=== PATIENT | female | born 1940 | race Caucasian/White ===

== ENCOUNTER 2017-08-07 13:20 | Inpatient (IN) ==
[2017-08-07] MEDS ORDERED: *HR* Enoxaparin 30 MG/0.3 ML SYRINGE SQ SCH (18:00)
[2017-08-07] MEDS: *HR* OxyCODONE/APAP 10/325 TABLET PO PRN (20:20)
[2017-08-07] MEDS: *HR* LORazepam 1 MG TABLET PO PRN (20:20)
[2017-08-08 06:36] LABS: Basophils % 0.5 %; Eosinophils # 0.4 K/mcL (0.0-0.6); Eosinophils % 4.9 %; Hematocrit 32.2 % (35.3-44.9); Hemoglobin 10.6 g/dL (11.5-15.4); Immature Granulocytes % 0.4 % (0-4); Lymphocytes % 26.2 %; Mean Corpuscular HGB Conc 32.9 g/dL (31.6-35.5); Mean Corpuscular Hemoglobin 29.5 pg (28.0-33.3); Mean Corpuscular Volume 89.7 fL (83.0-100.0); Mean Platelet Volume 10.7 fL (9.4-12.4); Monocytes # 0.8 K/mcL (0.0-1.3); Monocytes % 10.5 %; Neutrophils # 4.5 K/mcL (1.6-8.9); Platelet Count 274 K/mcL (140-400); Red Blood Count 3.59 M/mcL (3.82-4.97); Red Cell Distribution Width 13.5 % (11.5-14.5); Segmented Neutrophils % 57.5 %
[2017-08-08 06:41] LABS: Prothrombin Time 11.2 Seconds (9.4-12.1)
[2017-08-08 06:44] LABS: Activated Partial Thrombo Time 30.3 Seconds (26.0-36.0)
[2017-08-08 06:58] LABS: BUN/Creatinine Ratio 19 (6-26); Blood Urea Nitrogen 14 mg/dL (8-23); Calcium 9.2 mg/dL (8.6-10.3); Carbon Dioxide 30 mEq/L (23-29); Chloride 104 mEq/L (98-107); Glucose 98 mg/dL (70-105); Osmolality,Calculated 290 (280-300); Potassium 3.9 mEq/L (3.5-5.1); Sodium 140 mEq/L (136-145); eGFR For African Americans > 60 (> 60); eGFR For Non-African Americans > 60 (> 60)
[2017-08-08] MEDS: *HR* Enoxaparin 40 MG/0.4 ML SYRINGE SQ SCH (08:26)
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
[2017-08-08] MEDS: MOM Conc 10 ML UD.LIQ PO SCH (18:13)
[2017-08-08] MEDS: *HR* LORazepam 1 MG TABLET PO PRN (20:32)
[2017-08-08] MEDS: *HR* OxyCODONE/APAP 10/325 TABLET PO PRN (20:32)
[2017-08-09 06:04] LABS: Basophils % 0.6 %; Eosinophils # 0.4 K/mcL (0.0-0.6); Eosinophils % 5.7 %; Hematocrit 30.7 % (35.3-44.9); Immature Granulocytes % 0.3 % (0-4); Lymphocytes # 1.8 K/mcL (0.6-4.6); Mean Corpuscular HGB Conc 32.6 g/dL (31.6-35.5); Mean Platelet Volume 11.1 fL (9.4-12.4); Monocytes # 0.8 K/mcL (0.0-1.3); Monocytes % 10.9 %; Neutrophils # 3.9 K/mcL (1.6-8.9); Platelet Count 281 K/mcL (140-400); Red Blood Count 3.45 M/mcL (3.82-4.97); Red Cell Distribution Width 13.6 % (11.5-14.5); Segmented Neutrophils % 56.5 %
[2017-08-09 06:14] LABS: Prothrombin Time 11.1 Seconds (9.4-12.1)
[2017-08-09 06:17] LABS: Activated Partial Thrombo Time 32.8 Seconds (26.0-36.0)
[2017-08-09 06:25] LABS: BUN/Creatinine Ratio 25 (6-26); Blood Urea Nitrogen 16 mg/dL (8-23); Calcium 9.1 mg/dL (8.6-10.3); Carbon Dioxide 28 mEq/L (23-29); Chloride 105 mEq/L (98-107); Glucose 95 mg/dL (70-105); Osmolality,Calculated 285 (280-300); Potassium 4.2 mEq/L (3.5-5.1); Sodium 137 mEq/L (136-145); eGFR For African Americans > 60 (> 60); eGFR For Non-African Americans > 60 (> 60)
[2017-08-09] MEDS: *HR* Enoxaparin 40 MG/0.4 ML SYRINGE SQ SCH (08:44)
--- NOTE | 2017-08-09 17:59 | Internal Med Progress Note ---
Date of Encounter: 08/09/17 Time of Encounter: 17:50 - Assessment and plan (1) Patellar fracture Current Visit: No Status: Acute Assessment and plan: August 09. Now status post ORIF. Continue therapy intervention. Qualifiers: Encounter type: initial encounter Fracture type: closed Fracture morphology: comminuted Fracture alignment: displaced Laterality: left Qualified Code(s): S82.042A - Displaced comminuted fracture of left patella, initial encounter for closed fracture (2) Anemia Current Visit: Yes Status: Acute Assessment and plan: August 09. We will monitor hemoglobin. Qualifiers: Anemia type: unspecified type Qualified Code(s): D64.9 - Anemia, unspecified (3) DJD (degenerative joint disease) Current Visit: Yes Status: Acute Assessment and plan: August 09. Continue Percocet when necessary Qualifiers: Osteoarthritis location: unspecified site Osteoarthritis type: primary Qualified Code(s): M19.91 - Primary osteoarthritis, unspecified site (4) Near syncope Current Visit: Yes Status: Acute Assessment and plan: August 09. I told her the etiology was not obvious but it sounded more neurogenic than vascular in origin. She agreed to observe for now without further workup or treatment. - Subjective Interval history: August 09. She has no new complaints except experiencing an episode lasting approximately 2 seconds she describes as a "brain flash" that seemed to be in her right posterior neck and occipital area. She felt as if she were detach from reality for 1-2 seconds with near-syncope sensation and immediate resolution. She denied sensation of tachycardia or bradycardia or other neurologic phenomenon. She reports 2 similar previous episodes approximately 2 and 4 weeks ago. - Constitutional Vitals: Temp Pulse Resp BP Pulse Ox 98.4 F 75 16 131/67 95 08/09/17 07:24 08/09/17 07:24 08/09/17 07:24 08/09/17 07:24 08/09/17 07:24 Exam: She is resting comfortably in bed and appears in no acute distress. She is appropriate in conversation. Her affect is bright and cheerful. She had no pain on movement of her neck. I reviewed her medications and lab results. Internal Medicine: Result - Labs CBC & Chem 7: 08/09/17 05:28 08/09/17 05:28 Labs: Short CBC 08/09/17 Range/Units 05:28 WBC 6.9 (4.3-11.1) K/mcL Hgb 10.0 L (11.5-15.4) g/dL Hct 30.7 L (35.3-44.9) % Plt Count 281 (140-400) K/mcL Neutrophils # 3.9 (1.6-8.9) K/mcL BMP 08/09/17 05:28 Sodium 137 Potassium 4.2 Chloride 105 Carbon Dioxide 28 BUN 16 Creatinine 0.64 Glucose 95 Calcium 9.1 - ABG Interpretation ABG results: PT/INR, D-dimer PT 11.1 Seconds (9.4-12.1) 08/09/17 05:28 Consult Discharge Plan - Plan Referrals: Makayla Curtis MD [Primary Care Provider] - 1 week
[2017-08-09] MEDS: *HR* LORazepam 1 MG TABLET PO PRN (20:40)
[2017-08-09] MEDS: *HR* OxyCODONE/APAP 10/325 TABLET PO PRN (20:40)
[2017-08-10 04:58] LABS: Basophils # 0.1 K/mcL (0.0-0.2); Basophils % 0.9 %; Eosinophils # 0.4 K/mcL (0.0-0.6); Eosinophils % 6.3 %; Hematocrit 30.5 % (35.3-44.9); Hemoglobin 9.9 g/dL (11.5-15.4); Immature Granulocytes % 0.3 % (0-4); Lymphocytes # 1.9 K/mcL (0.6-4.6); Mean Corpuscular HGB Conc 32.5 g/dL (31.6-35.5); Mean Corpuscular Hemoglobin 28.8 pg (28.0-33.3); Mean Corpuscular Volume 88.7 fL (83.0-100.0); Mean Platelet Volume 10.9 fL (9.4-12.4); Monocytes # 0.7 K/mcL (0.0-1.3); Monocytes % 9.6 %; Neutrophils # 3.7 K/mcL (1.6-8.9); Platelet Count 292 K/mcL (140-400); Red Blood Count 3.44 M/mcL (3.82-4.97); Red Cell Distribution Width 13.5 % (11.5-14.5); Segmented Neutrophils % 54.9 %
[2017-08-10 05:10] LABS: Prothrombin Time 10.8 Seconds (9.4-12.1)
[2017-08-10 05:12] LABS: Activated Partial Thrombo Time 33.2 Seconds (26.0-36.0)
[2017-08-10 05:20] LABS: BUN/Creatinine Ratio 31 (6-26); Blood Urea Nitrogen 22 mg/dL (8-23); Calcium 9.2 mg/dL (8.6-10.3); Carbon Dioxide 28 mEq/L (23-29); Chloride 105 mEq/L (98-107); Glucose 97 mg/dL (70-105); Osmolality,Calculated 291 (280-300); Potassium 4.1 mEq/L (3.5-5.1); Sodium 139 mEq/L (136-145); eGFR For African Americans > 60 (> 60); eGFR For Non-African Americans > 60 (> 60)
[2017-08-10] MEDS: *HR* Enoxaparin 40 MG/0.4 ML SYRINGE SQ SCH (09:36)
[2017-08-10] MEDS: MOM Conc 10 ML UD.LIQ PO SCH (17:13)
[2017-08-10] MEDS: *HR* OxyCODONE/APAP 10/325 TABLET PO PRN (21:03)
[2017-08-10] MEDS: *HR* LORazepam 1 MG TABLET PO PRN (21:09)
[2017-08-11 06:25] LABS: Basophils # 0.1 K/mcL (0.0-0.2); Basophils % 0.6 %; Eosinophils # 0.4 K/mcL (0.0-0.6); Eosinophils % 4.3 %; Hematocrit 34.1 % (35.3-44.9); Hemoglobin 11.1 g/dL (11.5-15.4); Immature Granulocytes % 0.3 % (0-4); Lymphocytes # 1.9 K/mcL (0.6-4.6); Lymphocytes % 21.4 %; Mean Corpuscular HGB Conc 32.6 g/dL (31.6-35.5); Mean Corpuscular Hemoglobin 29.1 pg (28.0-33.3); Mean Corpuscular Volume 89.5 fL (83.0-100.0); Mean Platelet Volume 10.6 fL (9.4-12.4); Monocytes # 0.7 K/mcL (0.0-1.3); Monocytes % 8.5 %; Neutrophils # 5.6 K/mcL (1.6-8.9); Platelet Count 326 K/mcL (140-400); Red Blood Count 3.81 M/mcL (3.82-4.97); Red Cell Distribution Width 13.7 % (11.5-14.5); Segmented Neutrophils % 64.9 %
[2017-08-11 06:33] LABS: Prothrombin Time 11.2 Seconds (9.4-12.1)
[2017-08-11 06:36] LABS: Activated Partial Thrombo Time 33.5 Seconds (26.0-36.0)
[2017-08-11 06:44] LABS: BUN/Creatinine Ratio 27 (6-26); Blood Urea Nitrogen 19 mg/dL (8-23); Calcium 9.3 mg/dL (8.6-10.3); Carbon Dioxide 28 mEq/L (23-29); Chloride 102 mEq/L (98-107); Glucose 94 mg/dL (70-105); Osmolality,Calculated 284 (280-300); Sodium 136 mEq/L (136-145); eGFR For African Americans > 60 (> 60); eGFR For Non-African Americans > 60 (> 60)
[2017-08-11] MEDS: *HR* Enoxaparin 40 MG/0.4 ML SYRINGE SQ SCH (09:25)
--- NOTE | 2017-08-11 10:30 | Internal Med Progress Note ---
Date of Encounter: 08/11/17 Time of Encounter: 10:20 - Assessment and plan (1) Patellar fracture Current Visit: No Status: Acute Assessment and plan: August 09. Now status post ORIF. Continue therapy intervention. Qualifiers: Encounter type: initial encounter Fracture type: closed Fracture morphology: comminuted Fracture alignment: displaced Laterality: left Qualified Code(s): S82.042A - Displaced comminuted fracture of left patella, initial encounter for closed fracture (2) Anemia Current Visit: Yes Status: Acute Assessment and plan: August 09. We will monitor hemoglobin. Qualifiers: Anemia type: unspecified type Qualified Code(s): D64.9 - Anemia, unspecified (3) DJD (degenerative joint disease) Current Visit: Yes Status: Acute Assessment and plan: August 09. Continue Percocet when necessary Qualifiers: Osteoarthritis location: unspecified site Osteoarthritis type: primary Qualified Code(s): M19.91 - Primary osteoarthritis, unspecified site (4) Near syncope Current Visit: Yes Status: Acute Assessment and plan: August 09. I told her the etiology was not obvious but it sounded more neurogenic than vascular in origin. She agreed to observe for now without further workup or treatment. (5) Constipation Current Visit: Yes Status: Acute Assessment and plan: August 11. Will give higher dose MOM Qualifiers: Constipation type: unspecified constipation type Qualified Code(s): K59.00 - Constipation, unspecified - Subjective Interval history: August 09. She has no new complaints except experiencing an episode lasting approximately 2 seconds she describes as a "brain flash" that seemed to be in her right posterior neck and occipital area. She felt as if she were detach from reality for 1-2 seconds with near-syncope sensation and immediate resolution. She denied sensation of tachycardia or bradycardia or other neurologic phenomenon. She reports 2 similar previous episodes approximately 2 and 4 weeks ago. August 11. She has no new complaints. She denies any more "brain flash" occurrences. She reports she has not had a significant BM since admission. - Constitutional Vitals: Temp Pulse Resp BP Pulse Ox 98 F 68 16 135/53 98 08/11/17 06:51 08/11/17 06:51 08/11/17 06:51 08/11/17 06:51 08/11/17 06:51 Exam: She is resting comfortably in bed and appears in no acute distress. Her affect is bright and cheerful. I reviewed her medications and lab results. Internal Medicine: Result - Labs CBC & Chem 7: 08/11/17 06:10 08/11/17 06:10 Labs: Short CBC 08/11/17 Range/Units 06:10 WBC 8.7 (4.3-11.1) K/mcL Hgb 11.1 L (11.5-15.4) g/dL Hct 34.1 L (35.3-44.9) % Plt Count 326 (140-400) K/mcL Neutrophils # 5.6 (1.6-8.9) K/mcL BMP 08/11/17 06:10 Sodium 136 Potassium 4.0 Chloride 102 Carbon Dioxide 28 BUN 19 Creatinine 0.71 Glucose 94 Calcium 9.3 - ABG Interpretation ABG results: PT/INR, D-dimer PT 11.2 Seconds (9.4-12.1) 08/11/17 06:10 Consult Discharge Plan - Plan Referrals: Makayla Curtis MD [Primary Care Provider] - 1 week
[2017-08-11] MEDS: MOM Conc 10 ML UD.LIQ PO SCH (16:33)
[2017-08-11] MEDS: *HR* LORazepam 1 MG TABLET PO PRN (20:46)
[2017-08-11] MEDS: *HR* OxyCODONE/APAP 10/325 TABLET PO PRN (20:47)
[2017-08-12 06:14] LABS: Basophils # 0.1 K/mcL (0.0-0.2); Basophils % 0.8 %; Eosinophils # 0.4 K/mcL (0.0-0.6); Eosinophils % 5.5 %; Hematocrit 29.4 % (35.3-44.9); Hemoglobin 9.6 g/dL (11.5-15.4); Immature Granulocytes % 0.4 % (0-4); Lymphocytes # 1.8 K/mcL (0.6-4.6); Lymphocytes % 23.9 %; Mean Corpuscular HGB Conc 32.7 g/dL (31.6-35.5); Mean Corpuscular Hemoglobin 28.8 pg (28.0-33.3); Mean Corpuscular Volume 88.3 fL (83.0-100.0); Mean Platelet Volume 10.8 fL (9.4-12.4); Monocytes # 0.8 K/mcL (0.0-1.3); Monocytes % 9.7 %; Neutrophils # 4.6 K/mcL (1.6-8.9); Platelet Count 303 K/mcL (140-400); Red Blood Count 3.33 M/mcL (3.82-4.97); Red Cell Distribution Width 13.5 % (11.5-14.5); Segmented Neutrophils % 59.7 %
[2017-08-12 06:32] LABS: Activated Partial Thrombo Time 32.5 Seconds (26.0-36.0)
[2017-08-12 06:34] LABS: BUN/Creatinine Ratio 38 (6-26); Blood Urea Nitrogen 26 mg/dL (8-23); Carbon Dioxide 27 mEq/L (23-29); Chloride 105 mEq/L (98-107); Glucose 92 mg/dL (70-105); Osmolality,Calculated 288 (280-300); Potassium 3.8 mEq/L (3.5-5.1); Sodium 137 mEq/L (136-145); eGFR For African Americans > 60 (> 60); eGFR For Non-African Americans > 60 (> 60)
[2017-08-12] MEDS: *HR* Enoxaparin 40 MG/0.4 ML SYRINGE SQ SCH (08:32)
[2017-08-12] MEDS: *HR* LORazepam 1 MG TABLET PO PRN (21:05)
[2017-08-12] MEDS: *HR* OxyCODONE/APAP 10/325 TABLET PO PRN (21:05)
[2017-08-13] MEDS: MOM Conc 10 ML UD.LIQ PO SCH (08:59)
[2017-08-13] MEDS: *HR* Enoxaparin 40 MG/0.4 ML SYRINGE SQ SCH (09:00)
[2017-08-13] MEDS: *HR* OxyCODONE/APAP 10/325 TABLET PO PRN (20:35)
[2017-08-13] MEDS: *HR* LORazepam 1 MG TABLET PO PRN (20:35)
[2017-08-14] MEDS: *HR* Enoxaparin 40 MG/0.4 ML SYRINGE SQ SCH (11:09)
[2017-08-14] MEDS: *HR* OxyCODONE/APAP 10/325 TABLET PO PRN ×2 (12:13→21:00)
--- NOTE | 2017-08-14 18:43 | Internal Med Progress Note ---
Date of Encounter: 08/14/17 Time of Encounter: 18:35 - Assessment and plan (1) Patellar fracture Current Visit: No Status: Acute Assessment and plan: August 09. Now status post ORIF. Continue therapy intervention. Qualifiers: Encounter type: initial encounter Fracture type: closed Fracture morphology: comminuted Fracture alignment: displaced Laterality: left Qualified Code(s): S82.042A - Displaced comminuted fracture of left patella, initial encounter for closed fracture (2) Anemia Current Visit: Yes Status: Acute Assessment and plan: August 09. We will monitor hemoglobin. August 14. Recheck labs in a.m. Qualifiers: Anemia type: unspecified type Qualified Code(s): D64.9 - Anemia, unspecified (3) DJD (degenerative joint disease) Current Visit: Yes Status: Acute Assessment and plan: August 09. Continue Percocet when necessary Qualifiers: Osteoarthritis location: unspecified site Osteoarthritis type: primary Qualified Code(s): M19.91 - Primary osteoarthritis, unspecified site (4) Near syncope Current Visit: Yes Status: Acute Assessment and plan: August 09. I told her the etiology was not obvious but it sounded more neurogenic than vascular in origin. She agreed to observe for now without further workup or treatment. (5) Constipation Current Visit: Yes Status: Acute Assessment and plan: August 11. Will give higher dose MOM Qualifiers: Constipation type: unspecified constipation type Qualified Code(s): K59.00 - Constipation, unspecified - Subjective Interval history: August 09. She has no new complaints except experiencing an episode lasting approximately 2 seconds she describes as a "brain flash" that seemed to be in her right posterior neck and occipital area. She felt as if she were detach from reality for 1-2 seconds with near-syncope sensation and immediate resolution. She denied sensation of tachycardia or bradycardia or other neurologic phenomenon. She reports 2 similar previous episodes approximately 2 and 4 weeks ago. August 11. She has no new complaints. She denies any more "brain flash" occurrences. She reports she has not had a significant BM since admission. August 14. She had increased discomfort in the left knee this morning. Nursing reported there were some greenish drainage. She saw the orthopedist office today and the dressing was changed. Antibiotics were started. - Constitutional Vitals: Temp Pulse Resp BP Pulse Ox 98.1 F 60 161 141/56 94 08/14/17 06:51 08/14/17 06:51 08/14/17 06:51 08/14/17 06:51 08/14/17 06:51 Exam: There is increased warmth in the left knee compared to the right. There is no pitting edema. Her affect is bright and cheerful and she does not appear to be in significant pain. I reviewed her medications and lab results. Internal Medicine: Result - Labs CBC & Chem 7: 08/12/17 05:45 08/12/17 05:45 - ABG Interpretation ABG results: PT/INR, D-dimer PT 11.0 Seconds (9.4-12.1) 08/12/17 05:45 Consult Discharge Plan - Plan Referrals: Makayla Curtis MD [Primary Care Provider] - 1 week
[2017-08-14] MEDS: Doxycycline 100 MG CAPSULE PO SCH (20:59)
[2017-08-14] MEDS: *HR* LORazepam 1 MG TABLET PO PRN (20:59)
[2017-08-14] MEDS: Sulfamethoxazole/Trimeth DS 1 EACH TABLET PO SCH (21:00)
[2017-08-15] MEDS: *HR* Enoxaparin 40 MG/0.4 ML SYRINGE SQ SCH (07:57)
[2017-08-15] MEDS: Sulfamethoxazole/Trimeth DS 1 EACH TABLET PO SCH ×2 (07:57→21:33)
[2017-08-15] MEDS: Doxycycline 100 MG CAPSULE PO SCH ×2 (07:57→21:34)
[2017-08-15] MEDS: MOM Conc 10 ML UD.LIQ PO SCH ×2 (07:58→08:28)
[2017-08-15] MEDS: *HR* LORazepam 1 MG TABLET PO PRN (21:34)
[2017-08-16] MEDS: *HR* Enoxaparin 40 MG/0.4 ML SYRINGE SQ SCH (09:20)
[2017-08-16] MEDS: Sulfamethoxazole/Trimeth DS 1 EACH TABLET PO SCH ×2 (09:20→21:08)
[2017-08-16] MEDS: Doxycycline 100 MG CAPSULE PO SCH ×2 (09:20→21:08)
--- NOTE | 2017-08-16 16:13 | Internal Med Progress Note ---
Date of Encounter: 08/16/17 Time of Encounter: 16:00 - Assessment and plan (1) Patellar fracture Current Visit: No Status: Acute Assessment and plan: August 09. Now status post ORIF. Continue therapy intervention. Qualifiers: Encounter type: initial encounter Fracture type: closed Fracture morphology: comminuted Fracture alignment: displaced Laterality: left Qualified Code(s): S82.042A - Displaced comminuted fracture of left patella, initial encounter for closed fracture (2) Anemia Current Visit: Yes Status: Acute Assessment and plan: August 09. We will monitor hemoglobin. August 14. Recheck labs in a.m. August 16. Recheck labs in a.m. Qualifiers: Anemia type: unspecified type Qualified Code(s): D64.9 - Anemia, unspecified (3) DJD (degenerative joint disease) Current Visit: Yes Status: Acute Assessment and plan: August 09. Continue Percocet when necessary Qualifiers: Osteoarthritis location: unspecified site Osteoarthritis type: primary Qualified Code(s): M19.91 - Primary osteoarthritis, unspecified site (4) Near syncope Current Visit: Yes Status: Acute Assessment and plan: August 09. I told her the etiology was not obvious but it sounded more neurogenic than vascular in origin. She agreed to observe for now without further workup or treatment. August 16. She reports no further episodes. We will observe (5) Constipation Current Visit: Yes Status: Acute Assessment and plan: August 11. Will give higher dose MOM Qualifiers: Constipation type: unspecified constipation type Qualified Code(s): K59.00 - Constipation, unspecified - Subjective Interval history: August 09. She has no new complaints except experiencing an episode lasting approximately 2 seconds she describes as a "brain flash" that seemed to be in her right posterior neck and occipital area. She felt as if she were detach from reality for 1-2 seconds with near-syncope sensation and immediate resolution. She denied sensation of tachycardia or bradycardia or other neurologic phenomenon. She reports 2 similar previous episodes approximately 2 and 4 weeks ago. August 11. She has no new complaints. She denies any more "brain flash" occurrences. She reports she has not had a significant BM since admission. August 14. She had increased discomfort in the left knee this morning. Nursing reported there were some greenish drainage. She saw the orthopedist office today and the dressing was changed. Antibiotics were started. August 16. She has no new complaints. - Constitutional Vitals: Temp Pulse Resp BP Pulse Ox 97.6 F 68 16 143/65 98 08/16/17 08:00 08/16/17 08:00 08/16/17 08:00 08/16/17 08:00 08/16/17 08:00 Exam: She is resting comfortably in bed and appears in no acute distress. Her left knee shows slight decrease in erythema and warmth than previous exam. I reviewed her medications and lab results. Internal Medicine: Result - Labs CBC & Chem 7: 08/12/17 05:45 08/12/17 05:45 - ABG Interpretation ABG results: PT/INR, D-dimer PT 11.0 Seconds (9.4-12.1) 08/12/17 05:45 Consult Discharge Plan - Plan Referrals: Makayla Curtis MD [Primary Care Provider] - 1 week
[2017-08-16] MEDS: *HR* LORazepam 1 MG TABLET PO PRN (21:08)
[2017-08-17 05:22] LABS: Basophils # 0.1 K/mcL (0.0-0.2); Basophils % 0.9 %; Eosinophils # 0.3 K/mcL (0.0-0.6); Eosinophils % 3.7 %; Hematocrit 31.7 % (35.3-44.9); Hemoglobin 10.5 g/dL (11.5-15.4); Immature Granulocytes % 0.4 % (0-4); Lymphocytes # 1.8 K/mcL (0.6-4.6); Lymphocytes % 21.6 %; Mean Corpuscular HGB Conc 33.1 g/dL (31.6-35.5); Mean Corpuscular Volume 87.6 fL (83.0-100.0); Mean Platelet Volume 10.5 fL (9.4-12.4); Monocytes # 0.8 K/mcL (0.0-1.3); Monocytes % 9.2 %; Neutrophils # 5.2 K/mcL (1.6-8.9); Platelet Count 372 K/mcL (140-400); Red Blood Count 3.62 M/mcL (3.82-4.97); Segmented Neutrophils % 64.2 %
[2017-08-17 05:42] LABS: BUN/Creatinine Ratio 21 (6-26); Blood Urea Nitrogen 21 mg/dL (8-23); Calcium 9.6 mg/dL (8.6-10.3); Carbon Dioxide 27 mEq/L (23-29); Chloride 105 mEq/L (98-107); Glucose 90 mg/dL (70-105); Osmolality,Calculated 287 (280-300); Potassium 4.7 mEq/L (3.5-5.1); Sodium 137 mEq/L (136-145); eGFR For African Americans > 60 (> 60); eGFR For Non-African Americans 52 (> 60)
[2017-08-17] MEDS: Doxycycline 100 MG CAPSULE PO SCH ×2 (09:07→20:47)
[2017-08-17] MEDS: MOM Conc 10 ML UD.LIQ PO SCH (09:08)
[2017-08-17] MEDS: *HR* Enoxaparin 40 MG/0.4 ML SYRINGE SQ SCH (09:08)
[2017-08-17] MEDS: Sulfamethoxazole/Trimeth DS 1 EACH TABLET PO SCH ×2 (09:08→20:47)
[2017-08-17] MEDS ORDERED: Ondansetron ODT 4 MG TAB.RAPDIS SL PRN (19:44)
[2017-08-17] MEDS: *HR* LORazepam 1 MG TABLET PO PRN (21:57)
[2017-08-18] MEDS: *HR* Enoxaparin 40 MG/0.4 ML SYRINGE SQ SCH (08:30)
[2017-08-18] MEDS: Sulfamethoxazole/Trimeth DS 1 EACH TABLET PO SCH ×2 (08:30→21:13)
[2017-08-18] MEDS: Doxycycline 100 MG CAPSULE PO SCH ×2 (08:30→21:13)
[2017-08-18] MEDS ORDERED: Acetaminophen 325 MG TABLET PO PRN (21:05)
[2017-08-18] MEDS: *HR* LORazepam 1 MG TABLET PO PRN (21:16)
[2017-08-19 06:44] VITALS: BP 133/54
--- NOTE | 2017-08-19 09:15 | Discharge Summary ---
Date of Encounter: 08/19/17 Time of Encounter: 09:05 - Discharge Diagnosis (1) Patellar fracture Priority: Primary Status: Acute Qualifiers: Encounter type: initial encounter Fracture type: closed Fracture morphology: comminuted Fracture alignment: displaced Laterality: left Qualified Code(s): S82.042A - Displaced comminuted fracture of left patella, initial encounter for closed fracture (2) Anemia Priority: Secondary Status: Acute Qualifiers: Anemia type: unspecified type Qualified Code(s): D64.9 - Anemia, unspecified (3) DJD (degenerative joint disease) Priority: Secondary Status: Acute Qualifiers: Osteoarthritis location: unspecified site Osteoarthritis type: primary Qualified Code(s): M19.91 - Primary osteoarthritis, unspecified site (4) Near syncope Priority: Secondary Status: Acute (5) Constipation Priority: Secondary Status: Acute Qualifiers: Constipation type: unspecified constipation type Qualified Code(s): K59.00 - Constipation, unspecified Hospital course: Ms. Lan is a 77 year old female who was hospitalized at [facility] August 04 after a fall on pavement resulting in left patellar fracture. She had ORIF at [facility] and her postop course was unremarkable. She was transferred to [facility] swing bed for ongoing therapy needs. Initial orders were written by the discharging physician at [facility]. I saw her on August 08 and performed the swing bed history and physical. She had physical therapy and occupational therapy evaluation with ongoing intervention. She made satisfactory progress in therapy. On August 14 she had increased discomfort in the left knee and was evaluated at the orthopedist's office. She was started on doxycycline and Septra DS. Follow-up labs on August 17 showed creatinine having risen to 1.02 with estimated GFR 52. I suspect this could be due to Septra DS. Her PCP and/or orthopedist can monitor this. She went on day pass August 18 and functioned satisfactorily. She felt stable for discharge home on August 19. She will follow with orthopedist as directed. Hemoglobin on August 17 was stable at 10.5. Her PCP can monitor this. - Time Spent with Patient Total time spent providing and/or coordinating discharge services: - Discharge Medications Home Medications: Nortriptyline [Pamelor] 10 mg PO HS 08/04/17 [History] Enoxaparin [Lovenox] 30 mg SQ Q12HR #20 syringe 08/07/17 [Rx] LORazepam [Ativan] 0.5 mg PO HS PRN 5 Days #5 tablet 08/07/17 [Rx] OxyCODONE/APAP 10/325 [Percocet 10/325 MG] 1 each PO Q6HR PRN 5 Days #20 tablet 08/07/17 [Rx] Allergies/Adverse Reactions: 3 Allergy/AdvReac Type Severity Reaction Status Date / Time trazodone AdvReac Dizziness Verified 08/04/17 14:56 Date of admission: 08/07/17 13:25 Primary care physician: Makayla Curtis, Consults: 08/07/17 13:29 Consult to Occupational Therapy [CONS] Routine Comment: Evaluate, Develop and Implement Plan of Care Reason for Consult: Evaluate, Develop and Implement Plan of Care Does patient have active BEDREST order?: No Is patient medically & hemodynamically stable?: Yes Consult to Physical Therapy [CONS] Routine Comment: Evaluate, Plan and Implement Plan of Care Reason for Consult: Evaluate, Develop and Implement Plan of Care Does patient have active BEDREST order?: No Is patient medically & hemodynamically stable?: Yes Consult to Advertising Teacher [CONS] Routine Reason for SW Consult: Discharge Planning. - Constitutional Vitals: Temp Pulse Resp BP Pulse Ox 98.1 F 59 16 133/54 97 08/19/17 06:42 08/19/17 06:42 08/19/17 06:42 08/19/17 06:42 08/19/17 06:42 - Patient Status Disposition: Home Health Service Overall status at discharge: patient is progressing back to baseline - Discharge Instructions Follow Up With: Makayla Curtis MD [Primary Care Provider] - 1 week - Diet and Activity Activity: as per physical therapy Diet: advance to your usual diet
--- NOTE | 2017-08-19 09:26 | Physician Discharge Referral ---
Home Health/Hosp Referral Info Transfer to: Home Health Attending Provider: Nick Provider in Charge Post Discharge: PCP Casandra) - Diagnosis (1) Patellar fracture Priority: Primary Status: Acute (2) Anemia Priority: Secondary Status: Acute (3) DJD (degenerative joint disease) Priority: Secondary Status: Acute (4) Near syncope Priority: Secondary Status: Acute (5) Constipation Priority: Secondary Status: Acute - Respiratory Orders Smoking Cessation: Smoking cessation has been advised. For more information, call the [place] Tobacco Quit Line at 7-528-BBKF-NOW. - Diet/Nutrition Diet/Nutrition Orders: Regular - Activity Activity Orders: Walker - Services Needed Following services are medically necessary services: Nursing, Home Health Aide, Physical Therapy, Occupational Therapy - Transfer Medications Home Medications: Nortriptyline [Pamelor] 10 mg PO HS 08/04/17 [History] Enoxaparin [Lovenox] 30 mg SQ Q12HR #20 syringe 08/07/17 [Rx] LORazepam [Ativan] 0.5 mg PO HS PRN 5 Days #5 tablet 08/07/17 [Rx] OxyCODONE/APAP 10/325 [Percocet 10/325 MG] 1 each PO Q6HR PRN 5 Days #20 tablet 08/07/17 [Rx] Allergies/Adverse Reactions: 3 Allergy/AdvReac Type Severity Reaction Status Date / Time trazodone AdvReac Dizziness Verified 08/04/17 14:56 Certification: Further, I certify that my clinical findings support that this patient is homebound (i.e. absences from home require considerable and taxing effort and are for medical reasons or baptism services or infrequently or short duration when for other reasons) because: Homebound Reason: Leaving home requires considerable and taxing effort due to condition (Impaired walking ability secondary to patella fracture.) Attestation: My signature below is to certify that this patient is under my care and that I, or nurse practitioner, or a physician's dietetic assistant working with me, has a face-to -face encounter with this patient.
[2017-08-19] MEDS: Doxycycline 100 MG CAPSULE PO SCH (09:30)
[2017-08-19] MEDS: *HR* Enoxaparin 40 MG/0.4 ML SYRINGE SQ SCH (09:30)
[2017-08-19] MEDS: Sulfamethoxazole/Trimeth DS 1 EACH TABLET PO SCH (09:30)
[2017-08-19] MEDS: MOM Conc 10 ML UD.LIQ PO SCH (09:30)
== END 2017-08-19 16:00 | disposition home health service (06) | DRG 561 ==
LOC: INPPIK 13:25
PROVIDERS: ADMIT Internal Medicine; ATTEND Internal Medicine